=== PATIENT | female | born 1945 | race Caucasian/White ===

== ENCOUNTER → 2016-08-15 | Day surgery (SDC) | payer OTHER ==
[~2016-08-15] MED LIST: ACETAMINOPHEN 325 MG TAB ONE; BEDSIDE COMMODE1 MI1; CALC1TAB87 PO; CO Q60CA PO; CRAN500C2 PO; LACTATED RINGER'S 1000 ML INJ 1,000 ML ONE; LEVO88TA2 PO; LIDOCAINE HCL 1% 50 ML VIAL ONE; MIDAZOLAM HCL 2 MG/2 ML VIAL ONE; MORPHINE SULFATE 4 MG/ML INJ ONE; NORC5TAB PO; PROPOFOL 200 MG/20 ML AMP IV ONE; TRIAMCINOLONE ACETONIDE 40 MG/ML VIAL ONE; TURM1CAP6 PO; WALKER WHEELS/F1 MIS; WARF-23 PO
--- NOTE | 2016-08-15 15:05 | TN ---
cc: YAMILET MCKINNON M.D. DATE OF SURGERY: 08/15/2016 PREOPERATIVE DIAGNOSIS Right hip osteoarthritis, arthrogryposis (hip stiffness). POSTOPERATIVE DIAGNOSIS Right hip osteoarthritis, arthrogryposis (hip stiffness). PROCEDURE Right hip manipulation, intraarticular steroid injection, fluoroscopic guidance of needle under anesthesia. SURGEON Erika Mckinnon MD CALL OR CONTACT CENTRE OPERATOR Staff. SPECIMEN None. ESTIMATED BLOOD LOSS None. COMPLICATIONS None. ANESTHESIA General. DRAINS None. CONDITION Stable. PLAN OF ACTIVITY Per orders. DETAILS OF PROCEDURE The patient was brought into the operating room, had satisfactory TIVA anesthesia by Department of Anesthesia. The right hip and lower extremity was prepped and draped in the usual sterile manner. An 18-gauge spinal needle was introduced into the right hip joint with fluoroscopic guidance. The hip was injected with 5 cc of 1% plain lidocaine and 1 cc of Kenalog 40. The needle was withdrawn. A Band-Aid was placed over the injection site. The hip was then manipulated under anesthesia. The patient was found to have flexion of the hip to 100 degrees, abduction to 30 degrees and rotation was limited. The patient tolerated the procedure well and arrived in the recovery room in stable and satisfactory condition. Right hip x-ray, one view: Status post right hip manipulation no obvious fracture, dislocation or subluxation. Right hip osteoarthritis. Satisfactory placement of 18-gauge spinal needle right hip joint. MD EMY Kelly/ISMA /2:35 PM /3:00 PM
== END | disposition home or self-care (01) ==
LOC: ESDC 12:40
PROVIDERS: ATTEND Orthopaedic Surgery Orthopaedic Surgery of the Spine
DX: M16.11 Unilateral primary osteoarthritis, right hip (principal); Q68.8 Other specified congenital musculoskeletal deformities
CPT/HCPCS: 01200; 27275; 73501; 76000; J2250; J2270; J3010; J3301; J7120

== ENCOUNTER 2016-10-24 10:08 | Inpatient (IN) | payer OTHER, MEDICARE ==
[~2016-10-24] VITALS: Ht 157.5 cm; Wt 65.2 kg
[2016-10-25] MEDS ORDERED: CALC1TAB87 PO (09:37)
[2016-10-25] MEDS ORDERED: LEVO88TA2 PO (09:37)
[2016-10-25] MEDS ORDERED: TURM1CAP6 PO (09:37)
[2016-10-25] MEDS ORDERED: CRAN500C2 PO (09:37)
[2016-10-25] MEDS ORDERED: CO Q60CA PO (09:37)
[2016-10-26] MEDS ORDERED: METOPROLOL TARTRATE 25 MG TAB PO PRN (07:15)
[2016-10-26] MEDS ORDERED: LACTATED RINGER'S 1000 ML IV PRN (07:15)
[2016-10-26] MEDS ORDERED: VANCOMYCIN 1000 MG/NS 250 ML (for <70 kg) IV SCH ×2 (07:15)
[2016-10-26] MEDS ORDERED: INSULIN HUMAN REGULAR 1,000 UNITS/10 ML VIAL SQ PRN (07:15)
[2016-10-26] MEDS ORDERED: SODIUM CHLORID 0.9% 500 ML IV PRN (07:15)
[2016-10-26] MEDS ORDERED: CHLORHEXIDINE GLUCONATE 4% SOLN 120 ML BTL TOPICAL SCH (07:15)
[2016-10-26] MEDS ORDERED: POVIDONE IODINE 5% (ANTISEPSIS KIT) 4 APPLICATIONS EACH NARE PRN (07:15)
[2016-10-26] MEDS ORDERED: ceFAZolin 2 GM PREMIX 50 ML IV SCH (07:15)
[2016-10-26] MEDS ORDERED: CHLORHEXIDINE GLUCONATE 2 % 1 PACK (2 CLOTHS) TOPICAL PRN (07:15)
[2016-10-26] MEDS ORDERED: ACETAMINOPHEN 1000 MG/100 ML VIAL IV ONE (08:07)
[2016-10-26] MEDS ORDERED: FAMOTIDINE 20 MG/2 ML VIAL ONE ×2 (08:08→08:35)
[2016-10-26] MEDS ORDERED: APREPITANT 40 MG CAP ONE (08:08)
[2016-10-26] MEDS ORDERED: ceFAZolin INJ 1,000 MG VIAL ONE (08:26)
[2016-10-26] MEDS ORDERED: GENTAMICIN SULFATE 80 MG/2 ML VIAL ONE (08:26)
[2016-10-26] MEDS ORDERED: MIDAZOLAM HCL 2 MG/2 ML VIAL ONE (08:35)
[2016-10-26] MEDS ORDERED: DEXAMETHASONE SOD PHOS 4 MG/ML VIAL ONE (08:36)
[2016-10-26] MEDS ORDERED: fentaNYL CITRATE 250 MCG/5 ML AMP ONE (08:36)
[2016-10-26] MEDS ORDERED: ONDANSETRON HCL 4 MG/2 ML VIAL ONE (08:36)
[2016-10-26] MEDS ORDERED: HEPARIN SODIUM - SQ 10,000 UNITS/ML VIAL ONE ×2 (08:56→09:28)
[2016-10-26] MEDS: LACTATED RINGER'S 1000 ML INJ 1,000 ML IV SCH (10:39)
--- NOTE | 2016-10-26 10:44 | HHI.PR ---
Immediate Post Op Note Procedure Date: Oct 26, 2016 Pre Op Diagnosis: R Hip Severe OA;Acetabular Dysplasia Post Op Diagnosis: Same Surgeon: Gelacio Ventura MD Spool Salvager(s): Roslyn Polanco PA-C Procedure: R THR Complications: None Specimen(s) removed: None Estimated blood loss: 120cc Anesthesia: General Drains: None Patient to: PACU Patient Condition: Good Implant/Devices: SEE IMPLANT LOG (if applicable) Date/Time of Procedure: SEE SURGICAL CARE RECORD Gelacio Ventura MD Oct 26, 2016 10:43
[2016-10-26] MEDS ORDERED: MORPHINE SULFATE 8 MG/ML INJ IM PRN (10:45)
[2016-10-26] MEDS ORDERED: ALUMINUM/MAGNESIUM/SIMETH 30 ML CUP PO PRN (10:45)
[2016-10-26] MEDS ORDERED: ONDANSETRON HCL 4 MG/2 ML VIAL IVP PRN (10:45)
[2016-10-26] MEDS ORDERED: Post-op Orders (for Pharmacy) MISC XX ONE (10:45)
[2016-10-26] MEDS: SODIUM CHLORIDE 0.9% FLUSH 5 ML FLUSH IVF SCH ×2 (10:45→21:00)
[2016-10-26] MEDS ORDERED: SODIUM CHLORIDE 0.9% FLUSH 5 ML FLUSH IVF PRN (10:45)
--- NOTE | 2016-10-26 10:46 | HHI.FF ---
Face to Face Verification Diagnosis: (1) Osteoarthritis of right hip Physical Therapy Gait training, Transfer training, bed to chair Hip: Total hip, Protocol: Right, Posterior hip precautions Canvas Knee Splint: Other (while sleeping at night for 4 weeks ) Right LE Weight Bearing: WB as tolerated Left LE Weight Bearing: WB as tolerated Nursing RN Days per Week: 3 x Week(s): 4 Nursing: Dressing changes (clean incision with alcohol and apply dry sterile dressing ) Additional Instructions Pt/INR q Sunday and , call/text results to Roslyn BEVERLY [phone] Goal INR 1.5-1.8 I have seen patient Sonia Fink on 10/26/16. My clinical findings support the need for the requested home health care services because: Deconditioned w/ increased weakness High risk of falls I certify that my clinical findings support that this patient is homebound because: Post-op weakness Gelacio Ventura MD Oct 26, 2016 10:46
[2016-10-26] MEDS ORDERED: BEDSIDE COMMODE1 MI1 (10:49)
[2016-10-26] MEDS ORDERED: WALKER WHEELS/F1 MIS (10:49)
[2016-10-26] MEDS ORDERED: DO NOT ADM ANY ANTICOAGULANT DRUGS PRN (11:00)
--- NOTE | 2016-10-26 11:30 | RADRPT ---
EXAM DATE/TIME: 10/26/2016 11:02 [facility] COMPARISON: No previous studies available for comparison. INDICATIONS : Post op right hip surgery. MEDICAL HISTORY : None. SURGICAL HISTORY : None. ENCOUNTER: Initial ACUITY: 1 day PAIN SCORE: 3/10 LOCATION: Right hip and pelvis FINDINGS: Postop right hip replacement. Normal alignment. There is air in soft tissues. no complications identi fied. CONCLUSION: 1. Postoperative right hip replacement as above. Eliseo Alfaro MD on October 26, 2016 at 11:27 Board Certified Radiologist. This report was verified electronically.
[2016-10-26] MEDS ORDERED: ePHEDrine/NS 25 MG/5 ML SYR IV ONE (12:00)
[2016-10-26] MEDS ORDERED: NEOSTIGMINE 3 MG/3 ML SYR IV ONE (12:00)
[2016-10-26] MEDS ORDERED: PROPOFOL 200 MG/20 ML AMP IV ONE (12:00)
[2016-10-26] MEDS ORDERED: LACTATED RINGER'S 1000 ML INJ 1,000 ML IV ONE (12:00)
[2016-10-26] MEDS ORDERED: ONDANSETRON HCL 4 MG/2 ML VIAL IV PUSH ONE (12:00)
[2016-10-26] MEDS ORDERED: PHENYLEPH/NS 1000 MCG/10 ML SYR IV ONE (12:00)
[2016-10-26 12:03] VITALS: BP 180/81; PULSE 68; RESP 16; TEMP 96.2; O2SAT 100
[2016-10-26] MEDS: ACETAMINOPHEN/HYDROcodone 325 MG/5 MG TAB PO PRN ×2 (12:06→21:17)
[2016-10-26 16:05] VITALS: BP 124/64; PULSE 63; RESP 16; TEMP 95.6; O2SAT 100
[2016-10-26 20:00] VITALS: BP 129/60; PULSE 77; RESP 16; TEMP 96.1; O2SAT 99
[2016-10-26 20:47] VITALS: O2SAT 92
[2016-10-26] MEDS ORDERED: ZOLPIDEM TARTRATE 5 MG TAB PO PRN (21:00)
[2016-10-27] VITALS (7 sets, daily range): BP systolic 101–150; BP diastolic 52–63; PULSE 69–81; RESP 16–18; TEMP 96.1–97.4; O2SAT 97–100
[2016-10-27] MEDS: LACTATED RINGER'S 1000 ML INJ 1,000 ML IV SCH ×2 (03:11→11:39)
[2016-10-27] MEDS: LEVOTHYROXINE SODIUM 88 MCG TAB PO SCH (05:55)
[2016-10-27] MEDS: ACETAMINOPHEN/HYDROcodone 325 MG/5 MG TAB PO PRN ×3 (06:40→15:35)
[2016-10-27 07:02] LABS: INTERNATIONAL NORMALIZED RATIO 1.2 RATIO; PROTHROMBIN TIME - PATIENT 13.2 SEC (9.8-11.6)
--- NOTE | 2016-10-27 07:11 | PD.ORT.PN ---
Subjective Subjective Remarks pt doing well, complains of mild post op right hip pain no SOB, no chest pain explained to her operative findings Objective Vitals Vital Signs Date Time Temp Pulse Resp B/P Pulse Ox O2 Delivery O2 Flow Rate FiO2 10/27/16 04:00 97.0 70 16 110/54 98 10/27/16 00:00 96.2 81 16 101/52 97 10/26/16 20:47 92 21 10/26/16 20:00 96.1 77 16 129/60 99 10/26/16 16:05 95.6 63 16 124/64 100 10/26/16 12:03 96.2 68 16 180/81 100 10/26/16 11:30 52 20 144/67 100 Nasal Cannula 2 10/26/16 11:15 51 20 135/61 100 Nasal Cannula 2 10/26/16 11:00 62 20 144/75 100 Nasal Cannula 2 10/26/16 10:53 97.5 62 20 169/75 100 Nasal Cannula 2 10/26/16 07:25 I/O 10/26/16 10/26/16 10/26/16 10/27/16 10/27/16 10/27/16 07:00 15:00 23:00 07:00 15:00 23:00 Intake Total 1540 ml 1120 ml 480 ml Output Total 120 ml Balance 1420 ml 1120 ml 480 ml Intake Oral 480 ml 480 ml 480 ml IV Total 60 ml 640 ml Other 1000 ml Output Urine Total 120 ml # Voids 1 1 2 # Bowel Movements 0 1 0 Other Results Laboratory Tests Test 10/27/16 06:08 Prothrombin Time 13.2 SEC (9.8-11.6) Prothromb Time International 1.2 RATIO Ratio Objective Remarks seen by Dr. Gelacio Ventura right hip dressings dry and intact no calf tenderness +NVI Assessment & Plan Assessment and Plan POD #1 s/p R SANTIAGO low dose coumadin for dvt prop PT-WBAT anticipate discharge home with [facility] tomorrow orthopedically stable fill in coumadin dosage on discharge Roslyn Polanco Oct 27, 2016 07:11
[2016-10-27] MEDS: SODIUM CHLORIDE 0.9% FLUSH 5 ML FLUSH IVF SCH ×2 (08:55→21:00)
[2016-10-27] MEDS ORDERED: WARFARIN SOD 5 MG TAB PO SCH ×2 (10:00→16:00)
--- NOTE | 2016-10-27 11:14 | MP ---
cc: YAMILET MCKINNON M.D., BHUPENDRA SANBRISKA, OKSANA, MD PATEL, BHUPENDRA P. M.D. DATE OF SURGERY 10/26/2016 PREOPERATIVE DIAGNOSIS Right hip severe osteoarthritis, acetabular dysplasia. POSTOPERATIVE DIAGNOSIS Right hip severe osteoarthritis, acetabular dysplasia. PROCEDURE Right total hip arthroplasty SURGEON Erika Mckinnon MD DINING ROOM HOST Roslyn Polanco PA-C SPECIMENS None ESTIMATED BLOOD LOSS 120 cc COMPLICATIONS None ANESTHESIA General DRAINS None CONDITION Stable PLAN OF ACTIVITY Per orders. PROCEDURE My executive administrative assistant Roslyn Polanco PA-C was present for the entire surgical case. She was medically necessary for the entire case because of the complexity of the case and to facilitate the performance of the procedure. The CAREER SERVICES MANAGER at the back table was not a skill set for this case to manipulate the instruments e.g. the multiple different types of soft tissue retractors, trial implants and permanent implants. The patient was brought into the operating room and had satisfactory general endotracheal anesthesia by the Department of Anesthesia. The patient was placed in the lateral decubitus position. All pressure points were well-padded. The right hip and lower extremity was prepped and draped in the usual sterile manner. A small posterolateral exposure to the hip was made. Dissection carried through the subcutaneous tissue. The fascia lazara and gluteus lydia was incised in line with the skin incision. Real Charnley retractor placed in the wound in order to allow better exposure. Great care was made to protect the sciatic nerve throughout entire operative case. The short external rotators were removed as a group. The hip abductors were preserved. Capsulotomy was performed. The hip was dislocated posteriorly. Osteotomy was made on the neck at the appropriate level. The patient was found to have severe osteoarthritis with acetabular dysplasia. Acetabular labrum and capsule was surgically excised. Using hemispherical reamers, initially the acetabulum was deepened and appropriately widen to 50 mm in outer diameter. A 50 mm bicentric cup Press-Fit type manner was found to be very stable and satisfactory. Exposure to the femoral shaft was made. Using the [employer] Taperloc lock system, it was sequentially broached to a #11 broach standard offset. Trial reduction made with a 0 neck, 28 mm ball. The hip was reduced. Patient was found to have satisfactory stability, satisfactory limb lengths and satisfactory range of motion. The hip was then dislocated posteriorly and all trial components removed. The wound was irrigated with copious amounts of sterile saline. The wound itself was dry. A standard offset 11 mm Taperloc stem by [employer] was used inserted into the femoral shaft with an excellent "Press-Fit" manner. Patient found to have excellent fit and fill. The patient had approximately 15 degrees of anteversion. A neck 28 mm ball was then assembled onto the trunnion. The hip was reduced. The patient found to have again satisfactory limb lengths, satisfactory range of motion, satisfactory stability. The wound was irrigated with copious amounts of sterile saline antibiotic solution. The wound itself was dry. The pyriformis tendon and the short external rotators were repaired back to the greater trochanter with drill holes using #2 Tycron suture. The fascia lazara and gluteus lydia was closed in line with the skin incision using #2 Tycron sutures, subcutaneous layers with 0-Vicryl and 2-0 Vicryl. Skin was approximated with a running subcuticular 2-0 nylon. Sterile dressings were applied. The patient tolerated the procedure well and arrived in the recovery room in stable and satisfactory condition. MD EMY Kelly/BALJINDER /10:37 AM /10:58 AM
[2016-10-27] MEDS ORDERED: DOCUSATE SODIUM 100 MG CAP PO SCH (21:00)
[2016-10-27] MEDS ORDERED: BISACODYL 10 MG SUPP RECTAL PRN (22:45)
[2016-10-27] MEDS ORDERED: LACTULOSE SYRUP 20 GM/30 ML CUP PO PRN (22:45)
[2016-10-28 00:08] VITALS: BP 112/56; PULSE 95; RESP 18; TEMP 97.8; O2SAT 98
[2016-10-28] MEDS: LACTATED RINGER'S 1000 ML INJ 1,000 ML IV SCH ×3 (00:09→22:14)
[2016-10-28] MEDS: ACETAMINOPHEN/HYDROcodone 325 MG/5 MG TAB PO PRN ×2 (02:29→08:16)
[2016-10-28] MEDS: LEVOTHYROXINE SODIUM 88 MCG TAB PO SCH (05:56)
[2016-10-28 06:45] LABS: INTERNATIONAL NORMALIZED RATIO 1.1 RATIO; PROTHROMBIN TIME - PATIENT 12.7 SEC (9.8-11.6)
[2016-10-28 07:51] VITALS: BP 109/52; PULSE 81; RESP 17; TEMP 96.5; O2SAT 100
[2016-10-28] MEDS: MAGNESIUM HYDROXIDE SUSP 30 ML CUP PO SCH ×2 (08:15→20:11)
[2016-10-28] MEDS: DOCUSATE SODIUM 50 MG/SENNA 8.6 MG TAB PO SCH ×2 (08:15→20:11)
[2016-10-28] MEDS: SODIUM CHLORIDE 0.9% FLUSH 5 ML FLUSH IVF SCH ×2 (08:17→20:11)
--- NOTE | 2016-10-28 08:22 | PD.ORT.PN ---
Subjective Post Op Day #: 2 Subjective Remarks Patient is OOB in chair with mild pain to the right hip. Patient able to stand independently. Objective Vitals Vital Signs Date Time Temp Pulse Resp B/P Pulse Ox O2 Delivery O2 Flow Rate FiO2 10/28/16 00:08 97.8 95 18 112/56 98 10/27/16 19:39 97.4 80 18 128/60 100 10/27/16 19:14 Room Air 10/27/16 16:35 18 10/27/16 16:00 96.1 71 17 127/58 100 10/27/16 11:12 96.8 76 17 130/60 100 10/27/16 10:11 99 I/O 10/27/16 10/27/16 10/27/16 10/28/16 10/28/16 10/28/16 07:00 15:00 23:00 07:00 15:00 23:00 Intake Total 1105 ml 960 ml 360 ml 360 ml Balance 1105 ml 960 ml 360 ml 360 ml Intake Oral 480 ml 960 ml 360 ml 360 ml IV Total 625 ml # Voids 2 3 3 3 # Bowel Movements 0 0 0 0 Other Results Laboratory Tests Test 10/28/16 05:52 Prothrombin Time 12.7 SEC (9.8-11.6) Prothromb Time International 1.1 RATIO Ratio Procedures Right SANTIAGO Objective Remarks right hip dressings dry and intact no calf tenderness +NVI, + SILT Assessment & Plan Ortho Post Op Day #: 2 Problem List: Assessment and Plan POD #2 s/p R SANTIAGO low dose coumadin for dvt prop PT-WBAT stable for discharge home with [facility] today orthopedically stable fill in coumadin dosage on discharge Femi Hillman Oct 28, 2016 08:21
[2016-10-28 11:32] VITALS: BP 122/60; PULSE 92; RESP 17; TEMP 97.4; O2SAT 97
[2016-10-28 16:00] VITALS: BP 120/53; PULSE 111; RESP 17; TEMP 96.6; O2SAT 100
[2016-10-28] MEDS ORDERED: WARFARIN SOD 5 MG TAB PO SCH (16:00)
[2016-10-28 19:45] VITALS: BP 127/60; PULSE 110; RESP 18; TEMP 99.2; O2SAT 99
[2016-10-28 23:00] VITALS: BP 120/56; PULSE 112; RESP 18; TEMP 99.2; O2SAT 97
[2016-10-29] MEDS: LEVOTHYROXINE SODIUM 88 MCG TAB PO SCH (05:39)
[2016-10-29] MEDS: ACETAMINOPHEN/HYDROcodone 325 MG/5 MG TAB PO PRN ×2 (05:54→11:36)
[2016-10-29 07:47] LABS: INTERNATIONAL NORMALIZED RATIO 1.1 RATIO; PROTHROMBIN TIME - PATIENT 12.6 SEC (9.8-11.6)
[2016-10-29 07:50] VITALS: BP 105/54; PULSE 95; RESP 18; TEMP 98.1; O2SAT 97
[2016-10-29] MEDS ORDERED: WARF-23 PO (09:01)
[2016-10-29] MEDS ORDERED: NORC5TAB PO (09:01)
[2016-10-29] MEDS: SODIUM CHLORIDE 0.9% FLUSH 5 ML FLUSH IVF SCH (09:06)
[2016-10-29] MEDS: MAGNESIUM HYDROXIDE SUSP 30 ML CUP PO SCH ×2 (09:06→11:46)
[2016-10-29] MEDS: DOCUSATE SODIUM 50 MG/SENNA 8.6 MG TAB PO SCH (09:06)
--- NOTE | 2016-10-29 09:56 | PD.ORT.PN ---
Subjective Post Op Day #: 3 Subjective Remarks Patient resting comfortably in bed with minimal pain. Family/friend at bedside. Patient feels more comfortable about discharge today than yesterday. Objective Vitals Vital Signs Date Time Temp Pulse Resp B/P Pulse Ox O2 Delivery O2 Flow Rate FiO2 10/28/16 23:00 99.2 112 18 120/56 97 10/28/16 19:45 99.2 110 18 127/60 99 10/28/16 16:00 96.6 111 17 120/53 100 10/28/16 11:32 97.4 92 17 122/60 97 I/O 10/28/16 10/28/16 10/28/16 10/29/16 10/29/16 10/29/16 07:00 15:00 23:00 07:00 15:00 23:00 Intake Total 360 ml 960 ml 480 ml 480 ml Balance 360 ml 960 ml 480 ml 480 ml Intake Oral 360 ml 960 ml 480 ml 480 ml # Voids 3 3 2 3 # Bowel Movements 0 0 2 0 Other Results Laboratory Tests Test 10/29/16 06:47 Prothrombin Time 12.6 SEC (9.8-11.6) Prothromb Time International 1.1 RATIO Ratio Procedures Right SANTIAGO Objective Remarks right hip dressings dry and intact no calf tenderness +NVI, + SILT HR rechecked at 95 BPM Assessment & Plan Ortho Post Op Day #: 3 Problem List: Assessment and Plan POD #3 s/p R SANTIAGO low dose coumadin for dvt prop PT-WBAT stable for discharge home with c today orthopedically stable Coumadin dose filled today for discharge. Femi Hillman Oct 29, 2016 09:56
[2016-10-29 11:13] VITALS: O2SAT 98
[2016-10-29 11:38] VITALS: BP 109/53; PULSE 92; RESP 18; TEMP 98.7; O2SAT 100
--- NOTE | 2016-10-30 10:44 | HHI.DS ---
Discharge Summary Admission Date Oct 26, 2016 at 06:37 Discharge Date: Oct 29, 2016 Admitting Diagnosis Right hip osteoarthritis Diagnosis: (1) Osteoarthritis of right hip Diagnosis: Principal Procedures Right SANTIAGO Brief History This is a 71 year old female patient who presents with the following history. Patient began to have right hip pain after her and her moved their son into a new house. She was treated non-operatively with a cane, Meloxicam and exercise. She had persistence of her pain and she was scheduled for a right hip intra-articular steroid injection. [place] and her pain became very severe. She states she is unable to do the things she needs to do in her house etc and her pain is not tolerable any longer. Wants to proceed forward with surgical intervention. Significant Findings Laboratory Tests Test 10/28/16 10/29/16 05:52 06:47 Prothrombin Time 12.7 SEC 12.6 SEC (9.8-11.6) (9.8-11.6) PE at Discharge right hip dressings dry and intact no calf tenderness +NVI, + SILT HR rechecked at 95 BPM Hospital Course Patient underwent satisfactory anaesthesia by the dept of anaesthesia. She underwent right total hip arthroplasty on the date of admission. She did well following the procedure. She was treated with low dose coumadin night before procedure and will continue with low dose coumadin for four weeks post operatively to try and prevent DVT. She was started with physical therapy full weight bearing on pod #1. She was also treated with knee high TEDs and sequentials during her stay. She progressed well and was discharged home with [facility] on pod #3 in stable condition. Pt Condition on Discharge: Stable Discharge Disposition: Disch w/ Home Health Serv Discharge Instructions Diet Instructions: Coumadin (Warfarin) Diet Activities You Can Perform: Weight Bearing as Roslyn Joya Oct 30, 2016 10:44
== END 2016-10-29 11:58 | disposition home health service (06) | DRG 470 ==
LOC: HSDI 10-26 06:37 → N06B 10-26 11:54
PROVIDERS: ADMIT Orthopaedic Surgery Orthopaedic Surgery of the Spine; ATTEND Orthopaedic Surgery Orthopaedic Surgery of the Spine
PROC: 0SR90JA Replacement of Right Hip Joint with Synthetic Substitute, Uncemented, Open Approach (ICD-10-PCS; principal; 2016-10-26 08:47)
DX: M16.11 Unilateral primary osteoarthritis, right hip (principal); Q65.89 Other specified congenital deformities of hip
CPT/HCPCS: 73501; 85610; 94150; C1776; J0131; J0690; J1100; J1580; J1644; J2250; J2370; J2405; J2710; J3010; J3370; J7050; J7120; J8501

== ENCOUNTER → 2017-07-23 | Outpatient (CLI) | payer OTHER ==
[~2017-07-23] MED LIST changes: -ACETAMINOPHEN 325 MG TAB ONE; +ASPI325T33 PO; +CALC1TAB53 PO; -CO Q60CA PO; -LACTATED RINGER'S 1000 ML INJ 1,000 ML ONE; -LIDOCAINE HCL 1% 50 ML VIAL ONE; -MIDAZOLAM HCL 2 MG/2 ML VIAL ONE; -MORPHINE SULFATE 4 MG/ML INJ ONE; +OXYC1TAB63 PO; +PROB1TAB4 PO; -PROPOFOL 200 MG/20 ML AMP IV ONE; -TRIAMCINOLONE ACETONIDE 40 MG/ML VIAL ONE; -TURM1CAP6 PO
== END ==
LOC: CPRE 10:14
PROVIDERS: ATTEND Orthopaedic Surgery Orthopaedic Surgery of the Spine
DX: Z01.812 Encounter for preprocedural laboratory examination (principal)

== ENCOUNTER 2017-07-31 05:08 | Inpatient (IN) | payer OTHER, MEDICARE ==
[~2017-07-31] VITALS: Ht 157.5 cm; Wt 60.3 kg
[~2017-07-31 05:08] MED LIST changes: -ASPI325T33 PO; -BEDSIDE COMMODE1 MI1; -CALC1TAB87 PO; -CRAN500C2 PO; -OXYC1TAB63 PO; -WALKER WHEELS/F1 MIS; -WARF-23 PO
[2017-07-31] MEDS ORDERED: CHLORHEXIDINE GLUCONATE 2 % 1 PACK (2 CLOTHS) TOPICAL PRN (05:45)
[2017-07-31] MEDS ORDERED: METOPROLOL TARTRATE 25 MG TAB PO PRN (05:45)
[2017-07-31] MEDS ORDERED: SODIUM CHLORID 0.9% 500 ML IV PRN (05:45)
[2017-07-31] MEDS ORDERED: CHLORHEXIDINE GLUCONATE 4% SOLN 120 ML BTL TOPICAL SCH (05:45)
[2017-07-31] MEDS ORDERED: LACTATED RINGER'S 1000 ML IV PRN (05:45)
[2017-07-31] MEDS ORDERED: VANCOMYCIN 1 GM/200 ML INJ 200 ML IV SCH (05:45)
[2017-07-31] MEDS ORDERED: POVIDONE IODINE 5% (ANTISEPSIS KIT) 4 APPLICATIONS EACH NARE PRN (05:45)
[2017-07-31] MEDS ORDERED: INSULIN HUMAN REGULAR 1,000 UNITS/10 ML VIAL SQ PRN (05:45)
[2017-07-31] MEDS ORDERED: CEFAZOLIN INJ 2,000 MG in SODIUM CHLORIDE 0.9% INJ 100 ML IV SCH (05:45)
[2017-07-31] MEDS ORDERED: SODIUM CHLORIDE 0.9% IV SCH (06:00)
[2017-07-31] MEDS ORDERED: TRANEXAMIC ACID IV SCH (06:00)
[2017-07-31] MEDS ORDERED: EXPAREL PERI-ARTICULAR INJECTION (TOTAL VOL. 60 ML) P-ARTICULR SCH ×2 (06:00)
[2017-07-31] MEDS ORDERED: GENTAMICIN SULFATE 80 MG/2 ML VIAL ONE (06:58)
[2017-07-31] MEDS ORDERED: APREPITANT 40 MG CAP ONE (07:05)
[2017-07-31] MEDS ORDERED: BUPIVACAINE/EPINEPHRINE 0.5% PF 30 ML VIAL ONE (07:27)
--- NOTE | 2017-07-31 09:18 | PD.OP ---
cc: Taz Ventura MD Operative Report Date of Surgery: Jul 31, 2017 Preoperative Diagnosis: Osteoarthritis left hip Postoperative Diagnosis: Same Procedure: Left total hip replacement arthroplasty, direct anterior exposure Anesthesia: Gen. Surgeon: Taz Ventura Sql Consultant(s): GenGloria Operation and Findings: EBL: 400 cc INDICATION: This patient presents with significant hip pain related to osteoarthritis of the left hip. Despite extensive conservative care this patient continues to be painful and now presents for surgical treatment. NOTE: Izzy Kramer PA-C was present for the entire surgical procedure as my cutter first. In my medical opinion her skill and care was necessary for the proper management of this patient. COMPONENTS: COMPANY: [employer] CUP: [place], 52 mm, 100 series, gription surface LINER: Altrx 32 mm, neutral STEM: [place], high offset, size 12, hydroxyapatite-coated HEAD: Metal, 32 mm, +5, 12/14 taper PROCEDURE: This patient was brought to the operating room and anesthetized in the supine position and positioned on the fracture table with both legs held extended. The left hip and leg was scrubbed with alcohol followed by Hibiclens followed by ChloraPrep and draped sterilely. Antibiotics were given within routine time window and a timeout was done. A 4 inch incision was made starting 2 cm distal and 2 cm lateral to the anterior superior iliac spine. The fascia lazara was opened longitudinally. The interval between the fascia lazara and the rectus was opened down to the capsule of the hip joint. Retractors were positioned allowing good visualization of the capsule. This was opened longitudinally and flaps were created. Stay sutures were utilized. Exposure was excellent. The neck was cut at the proper location using fluoroscopy as a guide. The head was removed. Deep retractors were positioned allowing good visualization of the acetabulum. Acetabulum was deepened down to the floor starting with a proper size reamer and reaming up to 51 mm. A trial was utilized. Fluoroscopy was used to check position and confirmed satisfactory alignment. The rim was reamed with a 52 mm reamer and the final cup was positioned in approximately 20 of anteversion and 40-45 of abduction. Position was satisfactory. A single hole eliminator was positioned followed by the final liner. The lifting hook was utilized. The leg was dropped to the floor, maximally externally rotated and brought across the midline. Retractors were positioned. A box osteotome was utilized followed by progressive broaching to the proper stem size. Trial reduction showed excellent alignment and fit. With 60 of external rotation the leg was dropped to the floor without evidence of anterior subluxation. The wound was irrigated. The final stem was inserted and was found to be very stable. The final reduction using the final head. Stability was as previously noted. Intraoperative x-rays were taken. The wound was irrigated copiously. Hemostasis was controlled. Local anesthesia was utilized. The capsule was repaired with #2 Tycron sutures. The fascia lazara was repaired with running 0 PDS on a loop. Subcutaneous tissue was approximated with 2-0 Vicryl and skin with running intradermal 3-0 Vicryl followed by Steri-Strips. A sterile dressing was applied. The patient was awakened and taken to the recovery room in satisfactory condition. FINDINGS: There was severe osteoarthritis of the left hip. There was a large joint effusion. The final solution appeared to be excellent. Taz Ventura MD Jul 31, 2017 09:18
[2017-07-31] MEDS ORDERED: OXYC1TAB63 PO (09:22)
[2017-07-31] MEDS ORDERED: ASPI325T33 PO (09:22)
[2017-07-31] MEDS ORDERED: NALOXONE HCL 0.4 MG/ML AMP IV PUSH PRN (09:30)
[2017-07-31] MEDS: LACTATED RINGER'S 1000 ML INJ 1,000 ML IV SCH ×2 (09:30→22:00)
[2017-07-31] MEDS ORDERED: oxyCODONE/ACETAMINOPHEN 5 MG/325 MG TAB PO PRN (09:30)
[2017-07-31] MEDS ORDERED: ASPIRIN 81 MG CHEW TAB CHEW ONE (09:30)
[2017-07-31] MEDS ORDERED: MISCELLANEOUS NURSING INFORMATION XX PRN (09:30)
[2017-07-31] MEDS ORDERED: MORPHINE SULFATE 8 MG/ML INJ IM PRN (09:30)
[2017-07-31] MEDS ORDERED: DO NOT ADM ANY ANTICOAGULANT DRUGS PRN (09:36)
[2017-07-31] MEDS ORDERED: ACETAMINOPHEN 1000 MG/100 ML 100 ML IV ONE (09:41)
[2017-07-31] MEDS ORDERED: MIDAZOLAM HCL 2 MG/2 ML VIAL ONE (09:43)
[2017-07-31] MEDS ORDERED: MISCELLANEOUS PHARMACY INFORMATION XX SCH (09:45)
[2017-07-31] MEDS ORDERED: *morphine SULFATE 4 MG/ML PERIprocedure ONLY ONE (09:56)
[2017-07-31] MEDS ORDERED: Post-op Orders (for Pharmacy) XX ONE (10:00)
[2017-07-31] MEDS ORDERED: LACTATED RINGER'S 1000 ML INJ 1,000 ML IV ONE (12:00)
[2017-07-31] MEDS ORDERED: GLYCOPYRROLATE 1 MG/5 ML SYRINGE IV PUSH ONE (12:00)
[2017-07-31] MEDS ORDERED: LIDOCAINE HCL 1% PF 5 ML SYRINGE OTHER ONE (12:00)
[2017-07-31] MEDS ORDERED: PROPOFOL 200 MG/20 ML AMP IV ONE (12:00)
[2017-07-31] MEDS ORDERED: ceFAZolin INJ 1,000 MG VIAL IV ONE (12:00)
[2017-07-31] MEDS ORDERED: STERILE WATER FOR INJECTION 20 ML VIAL IV ONE (12:00)
[2017-07-31] MEDS ORDERED: DEXAMETHASONE SOD PHOS 4 MG/ML VIAL IV ONE (12:00)
[2017-07-31] MEDS ORDERED: NEOSTIGMINE 5 MG/5 ML SYRINGE IV PUSH ONE (12:00)
[2017-07-31] MEDS ORDERED: SODIUM CHLORIDE 0.9% 20 ML VIAL IV ONE (12:00)
[2017-07-31] MEDS ORDERED: ROCURONIUM INJ 50 MG/5 ML SYRINGE IV PUSH ONE (12:00)
[2017-07-31] MEDS ORDERED: ONDANSETRON HCL 4 MG/2 ML VIAL IV ONE (12:00)
[2017-07-31] MEDS ORDERED: COMMODE 3-IN-11 MIS (13:02)
[2017-07-31] MEDS ORDERED: WALKER WHEELS/F1 MIS (13:02)
--- NOTE | 2017-07-31 13:03 | HHI.DCPOC ---
Discharge Care Plan Diagnosis: (1) Osteoarthritis of left hip Your Health Problems Are: Difficulty with ADL Incision/Drains Swelling Goals to Promote Your Health * To prevent worsening of your condition and complications * To maintain your health at the optimal level Directions to Meet Your Goals Take your medications as prescribed Follow your dietary instruction Follow activity as directed Keep your appointments as scheduled Take your immunizations and boosters as scheduled If your symptoms worsen call your PCP, if no PCP go to Urgent Care Center or Emergency Room Smoking is Dangerous to Your Health. Avoid second hand smoke Call the 24-hour hour crisis hotline for domestic abuse at Sylvie Henson Jul 31, 2017 13:03
--- NOTE | 2017-07-31 13:03 | HHI.DS ---
Discharge Summary Admission Date Jul 31, 2017 at 05:08 Discharge Date: Aug 01, 2017 Admitting Diagnosis see below Diagnosis: (1) Osteoarthritis of left hip Diagnosis: Principal ICD Codes: M16.12 - Unilateral primary osteoarthritis, left hip Procedures Left total hip arthroplasty, direct anterior approach Brief History This is a 72 year old female patient Pt Condition on Discharge: Stable Discharge Disposition: Disch w/ Home Health Serv Discharge Instructions Diet Instructions: As Tolerated, No Restrictions, High Fiber Diet Activities You Can Perform: Weight Bearing as Melecio Activities to Avoid: Strenuous Activity Additional Activity Instruc.: SANTIAGO precautions New Medications: Commode 3-in-1 (Commode 3-in-1) 1 Mis Mis EA .XX DIRECTED, #1 0 Refills Walker with Front Wheels (Walker with Front Wheels) 1 Mis Mis EA .XX DIRECTED, #[address] (Aspirin EC) 325 Mg Tabdr 81 MG PO BID for Prevent Blood Clot, #60 TAB Oxycodone HCl/Acetaminophen (Oxycodone-Acetaminophen 5-325) 5 Mg-325 Mg Tablet 1 TAB PO Q4H PRN for PAIN, #42 TAB Continued Medications: Hedsjsq-Dhbctwwzo-Rfhh (Calcium & Magnesium + Zinc) 334-134-5 Mg Tab 1 TAB PO, TAB Hydrocodone-Acetaminophen ([place]) 5-325 mg Tab 1-2 TAB PO Q6H PRN for PAIN, #40 TAB 0 Refills Levothyroxine (Levothyroxine) 88 Mcg Tab 88 MCG PO DAILY for Thyroid, #30 TAB 0 Refills Probiotic Product (Acidophilus Probiotic) 500 Million Cell-50 Mg Tab 500 TAB PO DAILY for Nutritional Supplement Sylvie Henson Jul 31, 2017 13:03
--- NOTE | 2017-07-31 13:08 | HHI.FF ---
Face to Face Verification Diagnosis: (1) Osteoarthritis of left hip Physical Therapy Gait training, Safety evaluation, Transfer training, bed to chair Hip: Total hip, Protocol: Left, Progress to weight bearing Left LE Weight Bearing: WB as tolerated Additional Instructions PT 3-4 days/wk for 2 weeks. WBAT LLE, anterior precautions. Gait training. LE strengthening. Nursing RN Days per Week: 2 x Week(s): 1 RN: 3 days/week x 2 weeks Dressing Changes: Do not change dressing Additional Instructions Rn 2days /wk for 1 week. Vitals assessment. Dressing assessment - do not change unless saturated. I have seen patient Sonia Fink on 07/31/17. My clinical findings support the need for the requested home health care services because: Limited ability to care for self High risk of falls I certify that my clinical findings support that this patient is homebound because: Post-op weakness Unsteady gait/balance Sylvie Henson Jul 31, 2017 13:08
[2017-07-31 15:09] VITALS: BP 149/67; PULSE 73; RESP 16; TEMP 97.5; O2SAT 100
[2017-07-31 16:00] VITALS: BP 150/71; PULSE 85; RESP 16; TEMP 97.1; O2SAT 99
[2017-07-31 17:26] VITALS: O2SAT 99
[2017-07-31] MEDS: oxyCODONE/ACETAMINOPHEN 5 MG/325 MG TAB PO PRN (17:29)
[2017-07-31 19:00] VITALS: BP 160/75; PULSE 82; RESP 16; TEMP 97.5
--- NOTE | 2017-07-31 20:04 | RADRPT ---
EXAM DATE/TIME: 07/31/2017 07:39 [facility] COMPARISON: No previous studies available for comparison. INDICATIONS : Left total anterior hip replacement. MEDICAL HISTORY : Osteoarthritis. SURGICAL HISTORY : Right total hip replacement. ENCOUNTER: Initial ACUITY: 1 day PAIN SCORE: Non-responsive. LOCATION: Left anterior hip. FINDINGS: There is a bipolar hip prosthesis in place. This appears well placed. CONCLUSION: Successful placement of a left hip prosthesis. Real Almanza MD on July 31, 2017 at 20:02 Board Certified Radiologist. This report was verified electronically.
[2017-07-31] MEDS: MAGNESIUM HYDROXIDE SUSP 30 ML CUP PO SCH (20:41)
[2017-07-31] MEDS: ASPIRIN EC 81 MG TABEC PO SCH (20:41)
[2017-07-31] MEDS ORDERED: SENNOSIDES 8.6 MG TAB PO SCH (21:00)
[2017-07-31 21:55] VITALS: O2SAT 98
[2017-08-01] VITALS: BP 126/59; PULSE 99; RESP 18; TEMP 97.7; O2SAT 99
[2017-08-01] MEDS: oxyCODONE/ACETAMINOPHEN 5 MG/325 MG TAB PO PRN ×3 (00:37→10:45)
[2017-08-01 04:25] VITALS: BP 167/70; PULSE 93; RESP 18; TEMP 97.7; O2SAT 96
[2017-08-01] MEDS ORDERED: LEVOTHYROXINE SODIUM 88 MCG TAB PO SCH (06:00)
[2017-08-01 06:47] LABS: HEMATOCRIT 28.3 % (35.0-46.0); HEMOGLOBIN 9.7 GM/DL (11.6-15.3)
[2017-08-01 08:00] VITALS: BP 124/57; PULSE 90; RESP 18; TEMP 97.6; O2SAT 98
[2017-08-01] MEDS: MAGNESIUM HYDROXIDE SUSP 30 ML CUP PO SCH (08:18)
[2017-08-01] MEDS: ASPIRIN EC 81 MG TABEC PO SCH (08:18)
[2017-08-01] MEDS: LACTATED RINGER'S 1000 ML INJ 1,000 ML IV SCH (08:21)
[2017-08-01 12:00] VITALS: BP 111/59; PULSE 92; RESP 17; TEMP 97.8; O2SAT 98
--- NOTE | 2017-08-01 14:27 | PD.ORT.PN ---
Subjective Subjective Remarks Pt was seen at 12:30pm today. She is doing well. Left hip and thigh 'sore' but pain is well controlled. She did not sleep well last night but otherwise has no complaints. No new radiating leg pain. No CP or SOB. Eager to go home today. Objective Vitals Vital Signs Date Time Temp Pulse Resp B/P (MAP) Pulse Ox O2 Delivery O2 Flow Rate FiO2 08/01/17 12:00 97.8 92 17 111/59 (76) 98 08/01/17 11:48 16 08/01/17 08:00 97.6 90 18 124/57 (79) 98 08/01/17 04:25 97.7 93 18 167/70 (102) 96 08/01/17 00:00 97.7 99 18 126/59 (81) 99 07/31/17 21:55 98 07/31/17 19:00 97.5 82 16 160/75 (103) 07/31/17 17:26 99 21 07/31/17 16:00 97.1 85 16 150/71 (97) 99 07/31/17 15:09 97.5 73 16 149/67 (94) 100 I/O 07/31/17 07/31/17 07/31/17 08/01/17 08/01/17 08/01/17 07:00 15:00 23:00 07:00 15:00 23:00 Intake Total 1920 ml 100 ml 580 ml Output Total 650 ml Balance 1270 ml 100 ml 580 ml Intake Oral 380 ml 480 ml IV Total 240 ml 100 ml 100 ml Other 1300 ml Output Urine Total 250 ml Estimated Blood Loss 400 ml # Voids 3 # Bowel Movements 0 Result Diagram: 08/01/17 0545 Procedures Left total hip arthroplasty, direct anterior approach Objective Remarks With NAD Walking around room when I enter Left LE Dressing c/d/i, no drainage, mild warmth, little swelling +motor at, +sens, +nvi Neg homans Assessment & Plan Ortho Post Op Day #: 1 Problem List: (1) Osteoarthritis of left hip ICD Codes: M16.12 - Unilateral primary osteoarthritis, left hip Qualifiers: Qualified Codes: M16.12 - Unilateral primary osteoarthritis, left hip Assessment and Plan pod#1 s/p L SANTIAGO, anterior Ortho stable. Pain well controlled. Ok to d/c home w [facility] today after PT class. [place] as needed for pain. ASA 81mg Hold dressing changes unless saturated. PT - WBAT LLE. Anterior santiago precautions. F/U in 2 weeks as scheduled. F2F signed. Sylvie Henson Aug 01, 2017 14:27
== END 2017-08-01 14:16 | disposition home health service (06) | DRG 470 ==
LOC: HSDI 05:08 → N06B 14:38
PROVIDERS: ADMIT Orthopaedic Surgery Orthopaedic Surgery of the Spine; ATTEND Orthopaedic Surgery Orthopaedic Surgery of the Spine
PROC: 0SRB02A Replacement of Left Hip Joint with Metal on Polyethylene Synthetic Substitute, Uncemented, Open Approach (ICD-10-PCS; principal; 2017-07-31 07:17)
DX: M16.12 Unilateral primary osteoarthritis, left hip (principal); Z96.641 Presence of right artificial hip joint; E03.9 Hypothyroidism, unspecified; M25.452 Effusion, left hip; R39.15 Urgency of urination; E78.00 Pure hypercholesterolemia, unspecified; M81.0 Age-related osteoporosis without current pathological fracture; Z91.030 Bee allergy status
CPT/HCPCS: 73502; 76000; 85014; 85018; 94150; C1776; C9290; J0131; J0690; J1100; J1580; J2250; J2270; J2405; J2710; J3010; J3370; J7120; J8501